=== PATIENT | male | born 1935 | race Asian ===

== ENCOUNTER 2018-10-30 15:39 | Inpatient (IN) | payer OTHER ==
[~2018-10-30] VITALS: Ht 162.6 cm; Wt 57.9 kg
[2018-10-30] MEDS ORDERED: SOD CHLORIDE 0.9% 1,000 ML IV STA (15:54)
[2018-10-30] MEDS ORDERED: SODIUM CHLORIDE 0.9% 1L BAG IV* STA (15:56)
[2018-10-30] MEDS ORDERED: CEFEPIME 2GM/50 ML (PMX) 50 ML IVPB STA (15:56)
[2018-10-30] MEDS ORDERED: ACETAMINOPHEN 650 MG SUPP PR ONE (16:00)
[2018-10-30] MEDS ORDERED: VANCOMYCIN 1 GM (PMX) 250 ML IVPB ONE (16:00)
[2018-10-30] MEDS ORDERED: ACET325T45 PO (16:17)
[2018-10-30] MEDS ORDERED: MAG360OR42 PO (16:18)
[2018-10-30] MEDS ORDERED: ASPI-817 PO (16:19)
[2018-10-30] MEDS ORDERED: MAGN400O19 PO (16:19)
[2018-10-30] MEDS ORDERED: BISA10SU75 PR (16:20)
[2018-10-30] MEDS ORDERED: NA P230E RC (16:20)
[2018-10-30] MEDS ORDERED: CLOP75TA19 PO (16:21)
[2018-10-30] MEDS ORDERED: COLC0.6T6 PO (16:21)
[2018-10-30] MEDS ORDERED: DOCU-144 PO (16:22)
[2018-10-30] MEDS ORDERED: ROSU10TA55 PO (16:22)
[2018-10-30] MEDS ORDERED: HYDR-4011 PO (16:23)
[2018-10-30] MEDS ORDERED: LEVO500T10 PO (16:24)
[2018-10-30] MEDS ORDERED: MONT10TA24 PO (16:25)
[2018-10-30] MEDS ORDERED: MELA3TAB17 PO (16:25)
[2018-10-30] MEDS ORDERED: LOSA25TA12 PO (16:25)
[2018-10-30] MEDS ORDERED: MULT-105 PO (16:26)
[2018-10-30] MEDS ORDERED: PANT20TA3 PO (16:27)
[2018-10-30] MEDS ORDERED: ONDA4TAB95 PO (16:27)
[2018-10-30] MEDS ORDERED: SENN-120 PO (16:28)
[2018-10-30] MEDS ORDERED: PROT946L PO (16:28)
[2018-10-30] MEDS ORDERED: TUBE5VIA3 ID (16:30)
[2018-10-30] MEDS ORDERED: ASC500 PO (16:31)
[2018-10-30] MEDS ORDERED: ACETAMINOPHEN 500 MG TAB PO STA (17:34)
[2018-10-30] MEDS ORDERED: ONDANSETRON 4 MG INJ IV PRN ×2 (18:00→20:00)
[2018-10-30] MEDS ORDERED: ACETAMINOPHEN 325 MG TAB PO PRN ×2 (18:00→20:00)
[2018-10-30] MEDS ORDERED: IBUPROFEN 600 MG TAB PO ONE (18:00)
--- NOTE | 2018-10-30 19:01 | ERD ---
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 The patient is on 75 mg of Plavix on a daily basis. He also takes 81 mg of aspirin daily. Patient was recently discharged 1 week ago from [facility] treated for urinary tract infection and has been on oral antibiotics. The patient is at [facility]. The patient was brought to the emergency department after he had an episode of confusion. Nursing staff stated that they took the patient temperature was elevated at 102. He received Tylenol just prior to arrival. Family is at bedside and indicated while at [facility] he also had a TIA and had CT scans and MRIs performed which they were told was normal. 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 He is admitting physician at [facility] is Dr. Mckeon. The patient has not been experiencing productive or nonproductive cough. He had no chest pain. ROS All systems reviewed and are negative except as per history of present illness. Medications Home Meds Reported Medications Ascorbic Acid (Vitamin C) 500 Mg Tab, 500 MG PO DAILY, TAB 10/30/18 Tuberculin,Purif.prot.deriv. (Tubersol) 5 Tub Unit/0.1 Ml Vial, 5 TUB ID QHS, VIAL FOR TB SCREENING UNTIL 11/02/18 23:59 2ND STEP PPD. 10/30/18 Sennosides* (Senna Lax*) 8.6 Mg Tablet, 1 TAB PO DAILY PRN for NEEDED, TAB 10/30/18 Protein Supplement (Promod) 946 Ml Liquid, 30 ML PO DAILY END DATE 11/27/18 10/30/18 Pantoprazole* (Pantoprazole*) 20 Mg Tablet.dr, 20 MG PO DAILY, TAB 10/30/18 Ondansetron Hcl* (Ondansetron Hcl*) 4 Mg Tablet, 4 MG PO Q8H PRN for NAUSEA AND OR VOMITING, TAB 10/30/18 Multivitamin with Minerals (Multivitamins with Minerals) 1 Each Tablet, 1 EACH PO DAILY, TAB 10/30/18 Montelukast Sodium* (Montelukast Sodium*) 10 Mg Tablet, 10 MG PO QHS, #30 TAB 10/30/18 Melatonin (Melatonin) 3 Mg Tablet.sa, 3 MG PO HS PRN for NEEDED, TAB.SA 10/30/18 Losartan Potassium* (Losartan Potassium*) 25 Mg Tablet, 25 MG PO DAILY, TAB HOLD IF SBP<110 OR HR<60 10/30/18 Levofloxacin* (Levofloxacin*) 500 Mg Tablet, 500 MG PO DAILY, TAB FOR 7 DAYS,END DATE 10/31/18 10/30/18 Hydrocodone/Acetaminophen ([place] 5-325 Tablet) 1 Each Tablet, 1 EACH PO Q6H for PAIN -01/09, TAB 10/30/18 Docusate Sodium* (Colace*) 100 Mg Capsule, 100 MG PO BID, #60 CAP 10/30/18 Rosuvastatin Calcium* (Crestor*) 10 Mg Tablet, 10 MG PO QHS, #30 TAB 10/30/18 Colchicine* (Colcrys*) 0.6 Mg Tablet, 0.6 MG PO DAILY, TAB 10/30/18 Clopidogrel Bisulfate* (Clopidogrel Bisulfate*) 75 Mg Tablet, 75 MG PO DAILY, #30 TAB 10/30/18 Na Phos,M-B/Na Phos,Di-Ba (Fleet Enema Extra) 230 Ml Enema, 118 ML RC Q72H, ENEMA 10/30/18 Bisacodyl* (Bisacodyl*) 10 Mg Supp, 10 MG IL Q24H for CONSTIPATION, SUPP 10/30/18 Magnesium Hydroxide* (Milk Of Magnesia*) 400 Mg/5 Ml Oral.susp, 30 ML PO Q24H for CONSTIPATION, ML 10/30/18 Aspirin* (Aspirin* EC) 81 Mg Tablet.dr, 81 MG PO DAILY, TAB 10/30/18 Mag Hydrox/Al Hydrox/Simeth (ALUM-MAG HYDROXIDE-SIMETH LIQ) 360 Ml Oral.susp, 30 ML PO Q4H PRN for NEEDED 10/30/18 Acetaminophen* (Acetaminophen*) 325 Mg Tablet, 650 MG PO Q4H PRN for MILD PAIN LEVEL 1-3, #30 TAB AND FOR TEMP>100.4F 10/30/18 Allergies Allergies: Coded Allergies: No Known Allergy (Unverified , 10/30/18) PMhx/Soc Hx Psychiatric Problems: No Hx Miscellaneous Medical Probl: Yes (asthma cerebral infaction ) Hx Alcohol Use: No Hx Substance Use: No Hx Tobacco Use: No Smoking Status: Unknown if ever smoked Physical Exam Vitals Vital Signs Date Temp Pulse Resp B/P (MAP) Pulse Ox O2 O2 Flow FiO2 Time Delivery Rate 10/30/18 98.9 18:18 10/30/18 98.6 18:18 10/30/18 98.6 86 20 102/51 100 Nasal 2.0 18:14 (68) Cannula 10/30/18 101.9 16:50 10/30/18 Nasal 2 15:50 Cannula 10/30/18 101.9 101 22 148/88 100 Nasal 2.0 15:50 (108) Cannula 10/30/18 101.7 100 20 148/88 100 15:39 (108) Physical Exam Constitutional:Well-developed. Well-nourished. HEENT:Normocephalic. Atraumatic.Pupils were equal round reactive to light. Dry mucous membranes.No tonsillar exudates. Neck: No nuchal rigidity. No lymphadenopathy. No posterior cervical spine tenderness or step-offs. Respiratory: Not using accessory muscles of respiration.Lungs were clear to auscultation bilaterally. No rhonchi. No rales. No wheezing. Cardiovascular: Regular rate regular rhythm.No murmurs. No rubs were appreciated.S1, S2 normal. Distal pulses are palpable 2+ bilaterally. GI: Abdomen was soft. Nontender. Non Distended. No pulsatile abdominal masses or bruits. No rebound. No guarding. Bowel sounds were present and normal. Muscle skeletal: Left-sided hemiparesis..Normal muscle tone.No assymetrical calf tenderness or swelling. Skin: No petechia, no purpura. No lesions on the palms or the soles of the feet. No maculopapular rash. No sacral decubitus ulcers. Warm to the touch. NEURO: Patient was alert, awake to person place but not to time. The patient speaks both Amharic and [place]. No facial droop. Gait .Speech had regular rate and rhythm. No focal neurological deficits. Result Diagram: 10/30/18 1610 10/30/18 1610 Results 24 hrs Laboratory Tests Test 10/30/18 16:07 10/30/18 16:10 10/30/18 16:21 10/30/18 17:55 Bedside Glucose 146 mg/dL White Blood Count 31.2 10^3/ul Red Blood Count 4.40 10^6/ul Hemoglobin 13.2 g/dl Hematocrit 41.9 % Mean Corpuscular 95.2 fl Volume Mean Corpuscular 30.0 pg Hemoglobin Mean Corpuscular 31.5 g/dl Hemoglobin Concen t Red Cell 12.6 % Distribution Width Platelet Count 358 10^3/UL Mean Platelet 8.7 fl Volume Immature 1.300 % Granulocytes % Neutrophils % % Segmented 87 % Neutrophils % (Manual) Band Neutrophils 2 % % (Manual) Lymphocytes % % Lymphocytes % 8 % (Manual) Monocytes % % Monocytes % 1 % (Manual) Eosinophils % % Basophils % % Plasma Cells % 2 % (manual) Nucleated Red 0.0 /100WBC Blood Cells % Immature 0.410 10^3/ul Granulocytes # Neutrophils # 10^3/ul Neutrophils # 27.3 10^3/ul (Manual) Band Neutrophils 0.6 10^3/ul # Lymphocytes 2.4 10^3/ul (Manual) Lymphocytes # 10^3/ul Monocytes # 10^3/ul Monocytes # 0.3 10^3/ul (Manual) Eosinophils # 10^3/ul Basophils # 10^3/ul Plasma Cells # 0.6 10^3/ul (manual) Nucleated Red 10^3/ul Blood Cells # Platelet Estimate NORMAL Giant Platelets 1 % Polychromasia 1+ Poikilocytosis 1+ Ovalocytes 1+ Prothrombin Time 14.2 Sec Prothrombin Time 1.1 Ratio INR International 1.09 Normalized Ratio Activated 34.9 Sec Partial Thrombopl ast Time Sodium Level 141 mmol/L Potassium Level 4.2 mmol/L Chloride Level 111 mmol/L Carbon Dioxide 11 mmol/L Level Anion Gap 19 Blood Urea 18 mg/dl Nitrogen Creatinine 1.82 mg/dl Est Glomerular mL/min Filtrat Rate mL/min Glucose Level 162 mg/dl Lactic Acid Level 9.8 mmol/L 5.1 mmol/L Calcium Level 9.1 mg/dl Total Bilirubin 0.5 mg/dl Direct Bilirubin 0.00 mg/dl Indirect 0.5 mg/dl Bilirubin Aspartate Amino 52 IU/L Transf (AST/SGOT) Alanine 59 IU/L Aminotransferase (ALT/SGPT) Alkaline 107 IU/L Phosphatase Creatine Kinase 111 IU/L Creatine Kinase 0.4 Index Creatinine Kinase 0.47 ng/ml MB (Mass) Troponin I 0.018 ng/ml Total Protein 8.1 g/dl Albumin 4.1 g/dl Globulin 4.00 g/dl Albumin/Globulin 1.02 Ratio Salicylates Level < 1.0 mg/dl Acetaminophen < 10.0 ug/ml Level Ethyl Alcohol < 10.0 mg/dl Level Urine Color YELLOW Urine Clarity CLOUDY Urine pH 5.0 Urine Specific 1.020 [place] Urine Ketones NEGATIVE mg/dL Urine Nitrite NEGATIVE mg/dL Urine Bilirubin NEGATIVE mg/dL Urine NEGATIVE mg/dL Urobilinogen Urine Leukocyte NEGATIVE Shahsi/ul Esterase Urine Microscopic 5 /HPF RBC Urine Microscopic 5 /HPF WBC Urine Mucus MANY /HPF Urine Hemoglobin NEGATIVE mg/dL Urine Glucose NEGATIVE mg/dL Urine Total 2+ mg/dl Protein Urine Opiates Negative Screen Urine Negative Barbiturates Urine Negative Amphetamines Screen Urine Negative Benzodiazepines Screen Urine Cocaine Negative Screen Urine Negative Cannabinoids Current Medications Medications Dose Sig/Kwadwo Start Time Status Last (Trade) Ordered Route PRN Stop Time Admin Dose Reason Admin Sodium 1,000 ml @ Q1H STAT 10/30/18 DC 10/30/18 Chloride 1,000 mls/hr IV 15:54 15:54 10/30/18 16:53 Sodium 1,800 ml BOLUS OVER 2 10/30/18 DC 10/30/18 Chloride HOURS STAT 15:56 16:30 (NS) IV* 10/30/18 15:58 Cefepime HCl 50 ml @ ONCE STAT 10/30/18 DC 10/30/18 100 mls/hr IVPB 15:56 16:30 10/30/18 16:25 Vancomycin 250 ml @ ONCE ONCE 10/30/18 DC 10/30/18 HCl 125 mls/hr IVPB 16:00 17:07 10/30/18 17:59 650 mg ONCE ONCE 10/30/18 DC 10/30/18 Acetaminophen IL 16:00 16:50 (Tylenol 10/30/18 16:01 Supp) Ibuprofen 600 mg ONCE ONCE 10/30/18 DC (Motrin) PO 18:00 10/30/18 18:01 500 mg ONCE STAT 10/30/18 DC Acetaminophen PO 17:34 (Tylenol 10/30/18 17:36 Tab) Ondansetron 4 mg ER BRIDGE 10/30/18 HCl (Zofran PRN IV 18:00 10/31/18 Inj) NAUSEA/VOMITI 17:59 NG 650 mg ER BRIDGE 10/30/18 Acetaminophen PRN PO 18:00 10/31/18 (Tylenol .MILD PAIN 17:59 Tab) 1-3 OR TEMP Procedures/MDM The patient presented to the emergency department with an acute and persistent change in their mental status. The differential diagnosis is diverse however reversible causes such as hypoglycemia, opiate overdose, thiamine deficiency were immediately considered. The patient was placed on a soil fertility extension specialist, continuous pulse oximetry and IV access was established. The patients airway was secure however hypoxic events such as anemia, shock, or severe pulmonary disease were all considered as etiologies in this patients presentation. Circulation assessed with good cap refill and did not require fluids or pressure support. Finger stick for rapid glucose determined to be normal. I obtained a CT scan of the patient's head which was reviewed by the radiologist indicate the following: NO ACUTE INTRACRANIAL BLEED NOTED. Abnormal air in the middle cranial fossa bilaterally and in the cavernous sinus suggestive of basal skull fracture or communication with the sinuses. Correlate regarding trauma. IF FURTHER WORKUP IS DESIRED, FOLLOW-UP MRI MAY BE HELPFUL. The patient had no physical exam findings to suggest blunt or penetrating head trauma. I spoke with family who is very involved and they indicated there is no trauma that they are aware of. 1 week ago the patient had been at [facility] and treated for a TIA with a urinary tract infection and significant CT scans and MRIs were obtained as well as a neurological consult. I will try to obtain records from [facility] and I will also order an MRI which will be followed up with by the admitting physician. The patient was febrile and did meet Sirs criteria. Patient's infectious symptoms have not stabilized and the patient is at risk of rapid decompensation. The patient will be admitted for careful hydration, antibiotic therapy, and infectious source control. Severe Sepsis Assessment: Infectious Source: Unknown End organ damage indicated by: Lactate > 2.0 mmol/L Severe Sepsis Managment: Blood Cultures X 2 before broad spectrum antibiotics initiated within 3 hours of recognition. 30 ml/kg NS bolus Completed Initial Lactate: 9.8 Repeat Lactate 5.1 Septic Shock Assessment (1 hour post 30 ml/kg fluid bolus): Hypotension (SBP < 90 or 40 mmHg drop, MAP < 65): No Lactic acid > 4.0 Yes Perfusion Reassessment for Septic Shock: Temp 98.63, Pulse 86, RR 20, BP 102/51 taken at 1814 Heart Exam: Normal Lung Exam: No Crackles Capillary Refill: Less then 2 seconds Peripheral Pulses: Radially present Skin: Normal I considered further perfusion assessment with CVP measurement, SCVO2, bedside ultrasound volume assessment, passive leg raise, trial of further fluid bolus. And preceded with IV fluid 12 Lead EKG tracing ordered and reviewed by myself showed: Normal sinus rhythm of 88 bpm and no arrhythmia. IL interval normal. QRS duration widened at 124 ms with right bundle branch block No ST segment elevation No ST segment depression. No changes consistent with acute ischemia. The patient had severe leukocytosis with a white blood count of 31,000. The patient did not have an obvious source of infection. The patient had no urinary tract infection. There is no evidence of upper respiratory infection or pneumonia. The patient had no skin changes to suggest cellulitis or necrotizing fasciitis and no sacral decubitus ulcers. The patient did receive vancomycin and cefepime for sepsis of unclear etiology. Patient will be admitted under the care of in serious condition with an anticipated stay of greater than 2 midnights to the telemetry service Critical Care: Time: 80 minutes Treatments/Evaluations: Close monitoring and treatment of unstable vital signs, cardiorespiratory, and neurologic status, while maintaining tight balance of fluid, respiratory, and cardiac interventions. Time does not include performing any of the above billable procedures. Departure Diagnosis: Primary Impression: Altered level of consciousness Additional Impression: Septic shock Condition: Serious RADHA GOLD MD Oct 30, 2018 18:59
[2018-10-30 20:00] VITALS: BP 124/59; PULSE 71; PULSE 97; RESP 18
[2018-10-30] MEDS ORDERED: ZOLPIDEM 5 MG TAB PO PRN (20:00)
[2018-10-30] MEDS ORDERED: NACL 0.9% 3 ML SYG IV SCH (20:00)
[2018-10-30] MEDS ORDERED: VANCOMYCIN IV PER PHARMACY XX SCH (20:30)
[2018-10-30] MEDS: SOD CHLORIDE 0.9% 1,000 ML IV SCH (20:48)
[2018-10-30 21:31] VITALS: Ht 162.6 cm; Wt 57.9 kg
[2018-10-30] MEDS: FAMOTIDINE 20 MG TAB PO SCH (22:07)
[2018-10-31] VITALS (12 sets, daily range): BP systolic 101–171; BP diastolic 56–75; PULSE 76–89; RESP 18–19
[2018-10-31] MEDS: PIPER-TAZO 3.375 GM IV (PMX) 100 ML IVPB SCH ×3 (02:32→18:00)
[2018-10-31] MEDS: SOD CHLORIDE 0.9% 1,000 ML IV SCH ×2 (05:59→15:59)
[2018-10-31] MEDS ORDERED: VANC500F2 IV (09:28)
[2018-10-31] MEDS ORDERED: PIPE3.374 IVPB (09:28)
--- NOTE | 2018-10-31 10:23 | HP ---
DATE OF ADMISSION: 10/30/2018 CHIEF COMPLAINT: Altered level of consciousness. HISTORY OF PRESENT ILLNESS: An 83-year-old male with a history of old cerebrovascular accident and l eft hemiparesis, was brought in from [facility] with altered level of c onsciousness. Nursing staff and family members noted the patient to be confused. There were no comp laints of abdominal pain. No shortness of breath or cough. No chest pain. No genitourinary symptom s. Initial evaluation revealed white blood cell count of 31,000 with elevated lactate. No source of inf ection was identified. Chest x-ray was normal and urine was clear. The patient received IV vancomyc in and Zosyn. Repeat lactate is normal at 1.1. PAST MEDICAL HISTORY: 1. Peripheral vascular disease. 2. History of old cerebrovascular accident with left hemiparesis. 3. Hypertension. MEDICATIONS PRIOR TO ADMISSION: 1. Protonix. 2. Montelukast sodium. 3. Melatonin. 4. Losartan. 5. Levaquin. 6. Bradley. 7. statin. 8. Colchicine. 9. Plavix. 10. Aspirin. PHYSICAL EXAMINATION: GENERAL: Well-developed, well-nourished elderly male who is in no apparent distress. He is sitting at the edge of the bad. He is alert and oriented. Family members are at the bedside. VITAL SIGNS: Stable. He is afebrile. HEENT: Extraocular muscles intact. Pupils equal and reactive to light bilaterally. Sclerae are ani cteric. Oropharynx is clear and moist. NECK: Supple, no JVD, no carotid bruits. LUNGS: Clear to auscultation bilaterally. CARDIAC: Regular rate and rhythm. No murmurs, rubs or gallops. ABDOMEN: Soft, nontender, nondistended, normoactive bowel sounds. EXTREMITIES: No clubbing, cyanosis, or edema. Some discoloration of the left knee noted. NEUROLOGICAL: Left-sided weakness. LABORATORY DATA: Sodium 144, potassium 3.4, chloride 120, bicarbonate 16, BUN 13, creatinine 1.1, gl ucose 96. Hemoglobin A1c 5.6. White blood cell count 16.7, hemoglobin 10.4, platelet count is 271,0 00. Chest x-ray: No radiographic evidence of an acute cardiopulmonary process. ASSESSMENT: 1. An 83-year-old male with altered level of consciousness due to underlying infection, resolved. S ource of infection is not identified. 2. Leukocytosis, improved. 3. Lactic acidosis, resolved. 4. Hypertension, stable. 5. History of old cerebrovascular accident with left hemiparesis. PLAN: 1. Admit to telemetry. 2. IV vancomycin and Zosyn, resume elective home medications: 3. Discharge planning back to [facility] with continued IV antibiotics. Dictated By: NGUYEN FRAIRE MD SK/NTS Conf#: [id number] DID#: [id number] CC: NGUYEN FRAIRE MD;*EndCC*
--- NOTE | 2018-10-31 10:28 | DS ---
DATE OF ADMISSION: 10/30/2018 DATE OF DISCHARGE: 10/31/2018 DISCHARGE DIAGNOSES: 1. Altered level of consciousness, resolved. 2. Underlying infection with no obvious source. 3. Leukocytosis, improved. 4. History of old cerebrovascular accident with left hemiparesis. 5. Hypertension. 6. Hyperlipidemia. HOSPITAL COURSE: An 83-year-old male presented from [facility] with al tered level of consciousness. There were no associated symptoms. Initial evaluation revealed white blood cell count of 31,000 and febrile state. No source of infection was identified. Chest x-ray wa s normal on urinalysis and urine was clean. Patient was treated with IV vancomycin and Zosyn. His c ondition improved significantly. His mental status was back to baseline. He is in a stable conditio n for transition back to long term facility. I will continue IV vancomycin and Zosyn for addit ional 5 days and he will resume physical therapy at the facility. Dictated By: NGUYEN NAVARRO/FELIBERTO Conf#: [id number] DID#: [id number] CC: NGUYEN FRAIRE MD;*EndCC*
[2018-10-31] MEDS ORDERED: VANCOMYCIN 500 MG (PMX) 100 ML IVPB SCH (16:00)
[2018-10-31] MEDS: FAMOTIDINE 20 MG TAB PO SCH (21:31)
== END 2018-10-31 22:40 | DRG 948 ==
LOC: E/R 15:39 → TEL 17:36
PROVIDERS: ADMIT Internal Medicine; ATTEND Internal Medicine
DX: R41.82 Altered mental status, unspecified (principal); I69.954 Hemiplegia and hemiparesis following unspecified cerebrovascular disease affecting left non-dominant side; Z79.02 Long term (current) use of antithrombotics/antiplatelets; D72.829 Elevated white blood cell count, unspecified; I10 Essential (primary) hypertension; E78.5 Hyperlipidemia, unspecified
CPT/HCPCS: 36415; 70450; 70551; 71045; 80048; 80053; 80307; 81001; 82550; 82553; 82962; 83036; 83605; 84484; 85025; 85610; 85730; 87081; 87400; 92610; 93005; 96361; 96365; 96375; J0692; J2543; J3370; J7030